=== PATIENT | male | born 1965 | race Caucasian/White ===

== ENCOUNTER 2017-10-24 20:39 | Emergency (ER) | payer OTHER, MEDICARE ==
[2017-10-24 23:04] LABS: A TYPE INFLUENZA AG NEGATIVE (NEGATIVE); B INFLUENZA AG NEGATIVE (NEGATIVE)
--- NOTE | 2017-10-24 23:15 | RADIOLOGY REPORT (SQ) ---
EXAM DESCRIPTION: CHEST PA/LAT COMPLETED DATE/TIME: 10/24/2017 10:56 pm REASON FOR STUDY: cough, fever COMPARISON: None. EXAM PARAMETERS: NUMBER OF VIEWS: two views TECHNIQUE: Digital Frontal and Lateral radiographic views of the chest acquired. RADIATION DOSE: NA LIMITATIONS: none FINDINGS: LUNGS AND PLEURA: No consolidation , masses or pneumothorax. No pleural effusion. MEDIASTINUM AND HILAR STRUCTURES: Age-appropriate. HEART AND VASCULAR STRUCTURES: Heart upper limits of normal size. No evidence for failure. BONES: No acute findings. HARDWARE: None in the chest. OTHER: No other significant finding. IMPRESSION: No acute findings. TECHNICAL DOCUMENTATION: JOB ID: [id number] [place]-[id number] 2010 [employer]- All Rights Reserved
--- NOTE | 2017-10-24 23:23 | ER Document Report ---
HPI - HPI Patient complains to provider of: cough, fever, Onset: Yesterday Onset/Duration: Sudden Pain Level: 4 Context: Patient presents to the emergency department with complaints of virus possible flu. Reports temperature of 101.4 an hour before he came to the hospital. He did not take any Tylenol. Upon arrival his temperature was 100.6. He reports his heart rate was 92 at rest he feels short of breath his throat was scratchy and he has been having a nonproductive cough since yesterday. Reports history of intermittent A. fib. Also complains of major headache and body pains. Patient denies vomiting reports diarrhea this morning. Does not believe in flu vaccine. Associated Symptoms: Nonproductive cough, Fever, Headache, Sore throat Exacerbated by: Denies Relieved by: Denies Similar symptoms previously: No Recently seen / treated by doctor: No - CONSTITUTIONAL Constitutional: REPORTS: Fever, Chills - EENT EENT: REPORTS: Sore Throat. DENIES: Ear Pain, Eye problems - NEURO Neurology: DENIES: Headache, Weakness, Vision blurred, Dizzinesss / Vertigo - CARDIOVASCULAR Cardiovascular: DENIES: Chest pain - RESPIRATORY Respiratory: REPORTS: Trouble Breathing, Coughing - GASTROINTESTINAL Gastrointestinal: DENIES: Abdominal Pain, Black / Bloody Stools - URINARY Urinary: DENIES: Dysuria, Urgency, Frequency - MUSCULOSKELETAL Musculoskeletal: DENIES: Extremity pain Past Medical History - General Information source: Patient - Social History Smoking Status: Current Every Day Smoker Cigarette use (# per day): Yes Frequency of alcohol use: Occasional Drug Abuse: None Lives with: Family Family History: Reviewed & Not Pertinent Patient has suicidal ideation: No Patient has homicidal ideation: No - Past Medical History Cardiac Medical History: Reports: Hx Atrial Fibrillation Renal/ Medical History: Denies: Hx Peritoneal Dialysis GI Medical History: Reports: Hx Gastroesophageal Reflux Disease Psychiatric Medical History: Reports: Hx Depression, Hx Post Traumatic Stress Disorder Past Surgical History: Reports: Hx Abdominal Surgery - umbilical hernia, Hx Cardiac Catheterization - ablation x 4 - Immunizations History of Influenza Vaccine for 07/2017 - 12/2017 Season: No Vertical Provider Document - CONSTITUTIONAL Agree With Documented VS: Yes Exam Limitations: No Limitations General Appearance: WD/WN, No Apparent Distress - nontoxic looking - INFECTION CONTROL TRAVEL OUTSIDE OF THE [place] IN LAST 30 DAYS: No - HEENT HEENT: Atraumatic, Normocephalic, Pharyngeal Erythema. negative: Pharyngeal Exudate - NECK Neck: Normal Inspection, Supple. negative: Lymphadenopathy-Left, Lymphadenopathy-Right - RESPIRATORY Respiratory: Breath Sounds Normal, No Respiratory Distress O2 Sat by Pulse Oximetry: 95 - CARDIOVASCULAR Cardiovascular: Regular Rate, Regular Rhythm - GI/ABDOMEN Gastrointestinal: Abdomen Soft, Abdomen Non-Tender - BACK Back: Normal Inspection - MUSCULOSKELETAL/EXTREMETIES Musculoskeletal/Extremeties: MAEW, FROM - NEURO Level of Consciousness: Awake, Alert, Appropriate Motor/Sensory: No Motor Deficit - DERM Integumentary: Warm, Dry, No Rash Course - Re-evaluation Re-evalutation: 10/24/17 23:27 Influenza and strep negative patient looks nontoxic chest x-ray negative patient will be sent home with instructions on treating temperature and importance of follow-up with primary care provider. 10/24/17 23:36 temp 101.8, tylenol ordered, pt looks good, nontoxic, will fu with his pcp. - Vital Signs Vital signs: Temp Pulse Resp BP Pulse Ox 100.6 F H 86 18 120/76 95 10/24/17 20:59 10/24/17 20:59 10/24/17 20:59 10/24/17 20:59 10/24/17 20:59 - Diagnostic Test Radiology reviewed: Image reviewed, Reports reviewed - Diagnostic report text EXAM DESCRIPTION: CHEST PA/LAT COMPLETED DATE/TIME: 10/24/2017 10:56 pm REASON FOR STUDY: cough, fever COMPARISON: None. EXAM PARAMETERS: NUMBER OF VIEWS: two views TECHNIQUE: Digital Frontal and Lateral radiographic views of the chest acquired. RADIATION DOSE: NA LIMITATIONS: none FINDINGS: LUNGS AND PLEURA: No consolidation , masses or pneumothorax. No pleural effusion. MEDIASTINUM AND HILAR STRUCTURES: Age-appropriate. HEART AND VASCULAR STRUCTURES: Heart upper limits of normal size. No evidence for failure. BONES: No acute findings. HARDWARE: None in the chest. OTHER: No other significant finding. IMPRESSION: No acute findings. Discharge - Discharge Clinical Impression: Cough, Flu-like symptoms Condition: Stable Disposition: HOME, SELF-CARE Instructions: Acetaminophen Additional Instructions: *You have been evaluated for flu like symptoms today, cough, fever, sore throat *Your initial strep test is negative, A throat culture is pending you will be contacted if it is positive for strep. *Increase fluid intake as discussed *Monitor your temperature, take Tylenol as indicated *Follow up with a primary care provider within one week *Good hand washing *Return to ED for worsening condition, changes, needs Forms: Smoking Cessation Education
[2017-10-24] MEDS ORDERED: ACETAMINOPHEN 325 MG TABLET PO ONE (23:35)
[2017-10-24] MEDS ORDERED: ACETAMINOPHEN 325 MG TABLET ONE (23:37)
[2017-10-24 23:47] VITALS: BP 117/63
== END 2017-10-25 00:03 | disposition home or self-care (01) ==
LOC: ER 20:39
DX: R05 Cough (principal); R50.9 Fever, unspecified; R06.02 Shortness of breath; R09.89 Other specified symptoms and signs involving the circulatory and respiratory systems; I48.91 Unspecified atrial fibrillation; R51 Headache; R53.1 Weakness; H53.8 Other visual disturbances; R42 Dizziness and giddiness; F17.210 Nicotine dependence, cigarettes, uncomplicated
CPT/HCPCS: 71020; 87070; 87804; 87880; 99284